=== PATIENT | male | born 1965 | race American Indian/Alaskan Native ===

== ENCOUNTER 2021-07-05 23:36 | Emergency (ER) | payer OTHER ==
[2021-07-05 23:40] VITALS: BP 120/79
[2021-07-06] MEDS ORDERED: IBUPROFEN 600 MG TAB PO ONE (03:30)
[2021-07-06] MEDS ORDERED: ACETAMINOPHEN 500 MG TAB PO ONE (03:30)
[2021-07-06] MEDS ORDERED: TETANUS,DIPH,PERTUSS(ACELL) VACCINE 0.5 ML SYRINGE IM ONE (03:30)
--- NOTE | 2021-07-06 03:35 | Emergency Department Report ---
ED Upper Extremity Inj HPI - General Chief Complaint: Wound/Laceration Stated Complaint: LACERATION Source: patient Mode of arrival: Ambulatory Limitations: No Limitations - History of Present Illness Initial Comments: Patient is a 56-year-old -Mal[place]ian male with no past medical history who presented to the ED with complaint of acute onset persistent painful bleeding distal right ring finger laceration wound after he accidentally sliced his distal right ring finger with a knife at home when cutting pieces of vegetables and meat about 7 hours ago. Patient states that the bleeding has been persistent and constant since the injury occurred. Patient states that he is not up-to-date with his tetanus vaccination. Patient denies syncope, nausea and vomiting, headache, dizziness, numbness and tingling of right hand or right ring finger and fall. MD Complaint: Injury to:: right, finger (rigng finger laceration) -: Sudden, hour(s) (7) Other Extremity Injury: Fingers: Right (distal right ring finger laceration) Other Injuries: none Place: home Severity scale (0 -10): 8 Improves With: none Worsens With: movement of extremity Context: laceration, injury Associated Symptoms: denies other symptoms. denies: weakness, numbness, neck pain, suspects foreign body, nausea/vomiting, heard/felt popping sensat, other Treatments Prior to Arrival: bandage - Related Data Previous Rx's Medication Instructions Recorded Last Taken Type Ibuprofen [Motrin] 800 mg PO Q8HR PRN #30 tablet 07/06/21 Unknown Rx cephALEXin [Keflex] 500 mg PO Q8HR #30 cap 07/06/21 Unknown Rx Allergies Allergy/AdvReac Type Severity Reaction Status Date / Time No Known Allergies Allergy Unverified 07/05/21 23:40 ED Review of Systems ROS: Stated complaint: LACERATION Other details as noted in HPI Constitutional: denies: chills, fever Eyes: denies: eye pain, eye discharge, vision change ENT: denies: ear pain, throat pain Respiratory: denies: cough, shortness of breath, wheezing Cardiovascular: denies: chest pain, palpitations Endocrine: no symptoms reported Gastrointestinal: denies: abdominal pain, nausea, vomiting, diarrhea Genitourinary: denies: urgency, dysuria Musculoskeletal: arthralgia (distal right ring finger laceration wound with bleeding and pain). denies: back pain, joint swelling Skin: other (open bleeding wound on distal right ring finger). denies: rash, lesions Neurological: denies: headache, weakness, paresthesias Psychiatric: denies: anxiety, depression Hematological/Lymphatic: denies: easy bleeding, easy bruising ED Past Medical Hx - Past Medical History Previous Medical History?: No - Surgical History Past Surgical History?: No - Medications Home Medications: Home Medications Medication Instructions Recorded Confirmed Last Taken Type Ibuprofen [Motrin] 800 mg PO Q8HR PRN #30 tablet 07/06/21 Unknown Rx cephALEXin [Keflex] 500 mg PO Q8HR #30 cap 07/06/21 Unknown Rx ED Physical Exam - General Limitations: No Limitations General appearance: alert, in no apparent distress - Head Head exam: Present: atraumatic, normocephalic, normal inspection - Eye Eye exam: Present: normal appearance, PERRL, EOMI Pupils: Present: normal accommodation - ENT ENT exam: Present: normal exam, normal orophraynx, mucous membranes moist, TM's normal bilaterally, normal external ear exam - Neck Neck exam: Present: normal inspection, full ROM - Respiratory Respiratory exam: Present: normal lung sounds bilaterally. Absent: respiratory distress, wheezes, rales, rhonchi, chest wall tenderness, accessory muscle use, decreased breath sounds, prolonged expiratory - Cardiovascular Cardiovascular Exam: Present: regular rate, normal rhythm, normal heart sounds. Absent: systolic murmur, diastolic murmur, rubs, gallop - GI/Abdominal GI/Abdominal exam: Present: soft, normal bowel sounds. Absent: tenderness, guarding, rebound, hyperactive bowel sounds, hypoactive bowel sounds, organomegaly, mass - Extremities Exam Extremities exam: Present: normal inspection, full ROM, tenderness (Palpable severe tenderness on distal right ring finger due to an open bleeding laceration wound), normal capillary refill. Absent: pedal edema - Back Exam Back exam: Present: normal inspection, full ROM. Absent: tenderness, CVA ten derness (R), CVA tenderness (L), muscle spasm, paraspinal tenderness, vertebral tenderness - Neurological Exam Neurological exam: Present: alert, oriented X3, CN II-XII intact, normal gait, reflexes normal - Psychiatric Psychiatric exam: Present: normal affect, normal mood - Skin Skin exam: Present: warm, dry, intact, normal color, other (Bleeding 1 cm laceration wound with no flaps on distal right ring finger). Absent: rash ED Course Vital Signs 07/05/21 23:39 Temperature 98.0 F Pulse Rate 64 Respiratory 18 Rate Blood Pressure 120/79 O2 Sat by Pulse 98 Oximetry ED Medical Decision Making - Medical Decision Making This is a 56-year-old -Mal[place]ian male with no past medical history who presented to the ED with complaint of acute onset persistent painful bleeding distal right ring finger laceration wound after he accidentally sliced his distal right ring finger with a knife at home when cutting pieces of vegetables and meat about 7 hours ago. Patient states that the bleeding has been persistent and constant since the injury occurred. Patient states that he is not up-to-date with his tetanus vaccination. In the ED, patient is alert and oriented x3 and is not in any distress. Patient was treated for pain in the ED and also received booster tetanus vaccination. The wound was cleaned extensively normal saline and dressed accordingly with Surgicel gauze and 4 x 4 gauzes as well as Kerlix. Patient tolerated the procedure well. Wound was not sutured because it was an open wound with no flap to approximate around the woun d as all this had been cut completely during the accident. As a result of this the wound was just dressed to stop the bleeding. On reevaluation, patient's pain is well controlled with medication. Patient was discharge home on pain medications and prophylactic antibiotics and advised to follow-up with his primary care physician in 7 to 10 days for reevaluation or return to the ED immediately if symptoms get worse. - Differential Diagnosis Finger laceration; puncture wound; finger abrasion Critical care attestation.: If time is entered above; I have spent that time in minutes in the direct care of this critically ill patient, excluding procedure time. ED Disposition Clinical Impression: Laceration of right ring finger with damage to nail w/o foreign body Qualifiers: Encounter type: initial encounter Qualified Code(s): S61.314A - Laceration wi thout foreign body of right ring finger with damage to nail, initial encounter Disposition: 01 HOME / SELF CARE / HOMELESS Is pt being admited?: No Does the pt Need Aspirin: No Condition: Stable Instructions: Laceration Care, Adult, [id number], Nonsutured Laceration Care Additional Instructions: Take medication with food, drink plenty fluids and follow-up with your primary care physician in 7 to 10 days for reevaluation. Return to the ED immediately if symptoms get worse. Prescriptions: cephALEXin [Keflex] 500 mg PO Q8HR #30 cap Ibuprofen [Motrin] 800 mg PO Q8HR PRN #30 tablet PRN Reason: Pain , Severe (7-10) Referrals: [facility] [Provider Group] - 7-10 days Forms: Work/School Release Form(ED) Time of Disposition: 03:35 Print Language: POLISH
== END 2021-07-06 04:23 | disposition home or self-care (01) ==
LOC: ED 23:36
DX: S61.314A Laceration without foreign body of right ring finger with damage to nail, initial encounter (principal); W26.0XXA Contact with knife, initial encounter; Y93.89 Activity, other specified; Y92.009 Unspecified place in unspecified non-institutional (private) residence as the place of occurrence of the external cause; Y99.8 Other external cause status
CPT/HCPCS: 90471; 90715; 99282